=== PATIENT | male | born 1995 | race African-American/Black ===

== ENCOUNTER 2025-01-07 11:33 | Emergency (ER) | payer MEDICAID ==
[~2025-01-07] VITALS: Ht 175.3 cm; Wt 82.0 kg
[2025-01-07 11:36] VITALS: TEMP 37.1; O2SAT 99
[2025-01-07 12:24] LABS: CLARITY URINE CLEAR (CLEAR); COLOR URINE YELLOW (YELLOW); GLUCOSE URINE NEGATIVE (NEGATIVE); KETONES URINE NEGATIVE (NEGATIVE); LEUKOCYTE ESTERASE URINE 2+ (NEGATIVE); NITRITE URINE NEGATIVE (NEGATIVE); OCCULT BLOOD URINE 2+ (NEGATIVE); PH URINE 8.5 (4.5-8.0); PROTEIN URINE TRACE (NEGATIVE); SPECIFIC GRAVITY URINE 1.020 (1.005-1.030); UROBILINOGEN URINE 1.0 E.U./dL (0.2-1.0)
[2025-01-07 13:02] LABS: BACTERIA URINE FEW; RBC URINE 50-100 /hpf (0-2); SQUAMOUS EPITHELIAL CELL URINE NONE SEEN /lpf (RARE/1+); WBC URINE 50-100 /hpf (0-2); YEAST URINE NONE SEEN
[2025-01-07] MEDS: FAMOTIDINE 20MG TABLET PO ONE (14:08)
[2025-01-07 14:52] LABS: BASOPHILS % 0.7 % (0.0-2.0); EOSINOPHILS % 3.2 % (0.0-5.0); HEMATOCRIT. 40.8 % (42.0-52.0); HEMOGLOBIN. 13.9 g/dL (14.0-18.0); LYMPHOCYTES % 13.5 % (20.0-50.0); MEAN PLATELET VOLUME 8.3 fl (7.4-10.4); MONOCYTES % 8.2 % (2.0-8.0); NEUTROPHILS % 74.4 % (40.0-76.0); PLATELET 197 x1000/uL (130-400); RED BLOOD CELL COUNT 4.45 mill/uL (4.7-6.1); RED CELL DISTRIBUTION WIDTH 13.8 % (11.6-14.6)
[2025-01-07 15:06] LABS: INR 1.1
[2025-01-07 15:07] LABS: CREATININE 0.9 mg/dL (0.6-1.3)
[2025-01-07 15:08] LABS: TROPONIN I HIGH SENSITIVITY < 4 ng/L (3.0-53); UREA NITROGEN BLOOD 7 mg/dL (9-23)
[2025-01-07 15:09] LABS: ASPARTATE AMINOTRANSFERASE 15 IU/L (<34)
[2025-01-07 15:10] LABS: BILIRUBIN DIRECT 0.3 mg/dL (<=3.0); BILIRUBIN TOTAL 0.9 mg/dL (0.1-1.0); PROTEIN TOTAL 7.2 g/dL (6.0-8.3)
[2025-01-07] MEDS: CEFTRIAXONE SODIUM 500MG VIAL IM ONE (16:07)
[2025-01-07] MEDS ORDERED: CIPR-263 MT (16:11)
[2025-01-07] MEDS ORDERED: CIPR-494 MT (16:13)
[2025-01-07] MEDS ORDERED: DOXY100T2 MT (16:18)
[2025-01-07 16:26] VITALS: BP 139/83; PULSE 90; RESP 16; O2SAT 100
[2025-01-10 05:10] LABS: CHLAMYDIA TRACHOMATIS NAA Negative (Negative); NEISSERIA GONORRHOEAE NAA Negative (Negative)
== END 2025-01-07 17:00 | disposition home or self-care (01) ==
LOC: ER 11:43
DX: N39.0 Urinary tract infection, site not specified (principal); R31.9 Hematuria, unspecified; R60.0 Localized edema; R07.89 Other chest pain
CPT/HCPCS: 99285; 71045; 87491; 87591; 80076; 80048; 81003; 83880; 83690; 85025; 85610; 87086; 87186; 84484; 87077; 36415; 93005; 96372; J0696